=== PATIENT | male | born 1950 ===

== ENCOUNTER 2020-10-29 13:19 | Inpatient (IN) | payer MEDICARE, MEDICAID ==
[2020-10-29] MEDS ORDERED: NORVASC5 MG PO (13:49)
[2020-10-29] MEDS ORDERED: SINEMET 25-1001 EAC1 PO (13:51)
[2020-10-29] MEDS ORDERED: HALDOL DECAN50 MG/ML IM ×2 (13:54→14:16)
[2020-10-29] MEDS ORDERED: LASIX40 MG PO (13:55)
[2020-10-29] MEDS ORDERED: AMITIZA8 MCG PO (13:56)
[2020-10-29] MEDS ORDERED: PAXIL10 MG PO (13:57)
[2020-10-29] MEDS ORDERED: FLOMAX0.4 MG PO (13:58)
[2020-10-29] MEDS ORDERED: ACETAMINOPHEN500 M1 PO (14:02)
[2020-10-29 14:38] VITALS: BP 140/82
--- NOTE | 2020-10-29 16:13 | NUR ---
patient admitted to the services of Dr. Siddiqui for Agressive behaviors from [facility] in [place]. Pt arrived in own w/c per facility van with 2 staff members from facility. Code Status: DNR. Pt is alert and oriented to person, place and time. assist 1x with transfer. pt is calm and cooperative with staff. facility reported to staff he was aggressive with sexual advances toward staff such as grabbing females body parts. no behaviors noted at this time.
[2020-10-29 16:14] LABS: BASOPHILS 0.6 % (0-2); EOSINOPHILS 1.7 % (0-7); HEMATOCRIT 41.4 % (42.0-54.0); HEMOGLOBIN 13.5 g/dL (13.5-17.5); IMMATURE GRANULOCYTES 0.2 % (0-5); LYMPHOCYTE ABS# 1.23 10x3/uL (1.32-3.57); MCH 28.7 pg (26.0-34.0); MCHC 32.6 g/dL (31.0-37.0); MCV 88.1 fL (80.0-100.0); MEAN PLATELET VOLUME 10.5 fL (7.4-10.4); NEUTROPHIL ABS# 6.88 10x3/uL (1.78-5.38); NEUTROPHILS 78.5 % (40-80); PLATELET COUNT 180 10x3/uL (130-400); RDW 13.2 % (11.5-14.5); WBC 8.8 10x3/uL (4.8-10.8)
[2020-10-29 17:00] LABS: ALBUMIN 3.6 g/dL (3.4-5.0); BILIRUBIN - TOTAL 0.31 mg/dL (0.2-1.3); CALCIUM 8.5 mg/dL (8.5-10.1); CARBON DIOXIDE 29.7 mmol/L (21.0-32.0); CHOL - HDL RATIO 3.6 ratio (2.3-4.9); CREATININE - SERUM 1.5 mg/dL (0.6-1.3); LDL-HDL RATIO 2.1 ratio (1.5-3.5); POTASSIUM - SERUM 3.7 mmol/L (3.5-5.1); PROTEIN - SERUM 6.9 g/dL (6.4-8.2); THYROID STIMULATING HORMONE 2.74 uIU/mL (0.36-3.74)
[2020-10-29 18:01] VITALS: BP 140/82
[2020-10-29 20:00] VITALS: BP 118/72
[2020-10-29 22:01] LABS: BILIRUBIN NEGATIVE (NEGATIVE); KETONE NEGATIVE (NEGATIVE); NITRITE NEGATIVE (NEGATIVE); UROBILINOGEN NORMAL mg/dL (< 2)
--- NOTE | 2020-10-29 22:06 | NUR ---
RECEIVED PATIENT SLEEPING IN HIS ROOM HE WAS EASILY AROUSED TO TAKE HIS SINEMET, HE TOOK HIS MED WITHOUT DIFFICULY, NO SEXUAL INAPPROPRIATENESS AT THIS TIME. WILL FOLLOW POC
[2020-10-30 08:54] VITALS: BP 106/76
--- NOTE | 2020-10-30 13:37 | PSY ---
PATIENT NAME:PAO VERDE MEDICAL RECORD: [id number] : 52 LOCATION:[facility] ADMISSION DATE: 10/29/20 ACCOUNT: [id number] PSYCHIATRIC EVALUATION DATE OF EVALUATION: 10/29/20 IDENTIFYING DATA: The patient is 70 years old and he is admitted to the hospital on a voluntary basis. CHIEF COMPLAINT: Sexually inappropriate behavior. HISTORY OF PRESENT ILLNESS: The patient comes to us from a half-way in [place]. They report that he has advanced Parkinson's disease and that he has been sexually inappropriate. The specifics of this go beyond just some verbal or even vulgar commentary and have extended to him masturbating in public and groping at women who come too close to him. He seems genuinely surprised and offended when he is asked about these behaviors and he denies them. It is also clear that he has significant cognitive impairment. PAST MEDICAL HISTORY: Significant for benign prostatic hypertrophy, hypertension, and Parkinson's disease. PAST PSYCHIATRIC HISTORY: Unknown. The patient comes to us on a long-acting Haldol decanoate injection, which I have discontinued, but the fact that this was used indicates that there have been some problems with his behavior and/or reality testing and additional information needs to be sought. FAMILY HISTORY: Unknown. ALLERGIES: No known drug allergies. CURRENT MEDICATIONS: Include Lasix, Norvasc, Flomax, Sinemet, Amitiza, and Haldol decanoate which I have discontinued. SOCIAL HISTORY: The patient tells me that he is currently unmarried, but has been in the past. He tells me that he does not have any children and that he has no history of drug or alcohol abuse and that he worked for [employer] in [place] through much of his adult life. He denies legal entanglements. MENTAL STATUS EXAMINATION: The patient is awake, alert and oriented to person only. His mood is flat. His affect is constricted. Thought processes are circumstantial. Memory, concentration and abstraction abilities are severely impaired and he denies that he would seek to harm himself or others as well as psychotic symptoms. ASSESSMENT: AXIS I: Parkinson's related dementia. AXIS II: Deferred. AXIS III: Parkinson's disease, benign prostatic hypertrophy, hypertension. AXIS IV: Moderate. AXIS V: Global assessment of functioning is 30. PLAN: At this time, the patient is admitted to the hospital for a comprehensive medical, psychological, and social evaluation. He will be treated with both mood stabilizing and memory enhancing medications. His long-term prognosis is guarded. TRANSINT:[id number] Voice Confirmation ID: [id number] DOCUMENT ID: [id number] BECKY ACKERMAN MD at 1337 CC: [id number] DICTATION DATE: 10/29/20 1635 RADIO OFFICER: 10/29/20 1800 ADM IN [place] [id number] [place] [address]
[2020-10-30 13:40] VITALS: Wt 77.4 kg
--- NOTE | 2020-10-30 15:56 | NUR ---
ALERT, CALM, QUIET, SEXUALLY INAPPROPRIATE [facility] STAFF REQUESTING SEXUAL FAVORS FROM FEMALE STAFF. REDIRECTIBLE. MEDS ADMIN PER ORDERS WITH COMPLETE MED COMPLIANCE NOTED. NO ADVERSE REACTION TO MEDS. CONT. PLAN OF CARE OUTLINED.
[2020-10-30 20:00] VITALS: BP 135/80
--- NOTE | 2020-10-30 21:45 | NUR ---
RECEIVED PATIENT IN HIS ROOM, HE IS PLEASANT, CALM, TAKES HIS NIGHT MED. HAVE NOT SEEN ANY SEXUAL INAPRROPRIATENESS HOWEVER WAS TOLD IN REPORT THAT HE HAS BEEN INAPPROPRIATE ON DAYSHIFT. HE IS DEPENDENT UPON STAFF FOR ALL NEEDS. WILL FOLLOW POC
[2020-10-31 09:55] VITALS: BP 125/79
--- NOTE | 2020-10-31 15:30 | NUR ---
WALKED WITH A WALKER 86 FT A BIT UNSTEADY USED GT BELT
--- NOTE | 2020-10-31 17:33 | NUR ---
Rec'd patient up this am in a W/C. He is A/O times 2 to person and situation. He is med compliant and took his meds whole. He sat in the dining room today and watched TV. He attended some group/activities and participated some. He has been calm and coooperative. No aggressive or inappropriate sexual behaviors have been observed today. He is doing well.
[2020-10-31 20:00] VITALS: BP 118/89
--- NOTE | 2020-10-31 21:02 | NUR ---
PT IS ALERT AND ORIENTED TO SELF, PLACE AND SITUATION. HE IS RECEIVED IN HIS BED. BED ALARM ON AND WORKING. EDUCATED PT ON NEED FOR LEAVING THE BED ALARM ON. NO SEXUALLY INAPPROPRIATE BEHAVIOR NOTED. CALM AND COOPERATIVE WITH STAFF. EASY TO REDIRECT. NEEDS SOME FREQUENT REDIRECTION AT TIMES. COMPLIANT WITH ALL MEDICATIONS.
--- NOTE | 2020-11-01 02:59 | NUR ---
HEARD PT YELL OUT IN HIS ROOM. THIS NURSE GOES INTO HIS ROOM PT LAYING IN BED WITH HAND ON HIS GENITALS. PT STATES "PULL YOUR DRAWERS OFF." INFORMED HIM THAT HIS BEHAVIOR IS INAPPROPRIATE AND HE WAS IN A HOSPITAL. DIFFICULT TO REDIRECT AT THIS TIME.
--- NOTE | 2020-11-01 03:53 | NUR ---
PT OBSERVED BY STAFF MASTURBATING. REDIRECTED.
[2020-11-01 08:07] VITALS: BP 185/83
--- NOTE | 2020-11-01 08:26 | NUR ---
CONTINUES TO BE SEXUALLY INAPPROPRIATE WITH FEMALE STAFF. STATED TO MHT TO REMOVE HER CLOTHING.
--- NOTE | 2020-11-01 10:16 | NUR ---
Patient has been displaying sexual advances this am. He reached for one nurses private area and then said "pussy". He has had his penis out of his brief and his pants and will hold onto it, rub it, and use napkins in a motion as he is cleaning himself. Patient is reminded and informed with each episode of inappropriate behavior. He is redirected often.
--- NOTE | 2020-11-01 14:40 | NUR ---
ALERT, CALM, CONFUSED, VISITING WITH OTHER PATIENTS AT THIS TIME. BATH RECEIVED THIS MORNING PER MHT WITH NO INAPPROPRIATE BEHAVIOR NOTED. PATIENT COOPERATIVE. MEDS ADMIN PER ORDERS WITH COMPLETE MED COMPLIANCE NOTED. CONTINUE CURRENT PLAN OF CARE, MONITORING FOR FURTHER EPISODES OF SEXUAL BEHAVIORS.
[2020-11-01 20:00] VITALS: BP 114/82
--- NOTE | 2020-11-01 20:58 | NUR ---
PT IS ALERT AND ORIENTED TO SELF ONLY. POOR INSIGHT INTO HIS SITUATION. RECEIVED IN THE HALLWAY OUTSIDE THE NURSES STATION IN A WHEELCHAIR. PT HAS A FLAT AFFECT. COOPERATIVE WITH STAFF. COMPLIANT WITH ALL MEDICATIONS. EASY TO REDIRECT. EDUCATION ON BED ALARM PROVIDED AND PT VERBALIZED UNDERSTANDING.
--- NOTE | 2020-11-02 14:00 | NUR ---
As this nurse passed by patients room, I noticed patient was standing at the bedside with a urinal and was massaging his penis down into the urinal opening. This nurse closed his door for privacy. PT assessed and treated patient today.
--- NOTE | 2020-11-02 14:17 | NUR ---
GT BELT, PATIENT STOOD AND WALKED IN ALARCON 100 FEET WITH MIN-MOD ASST. PATIENT IS UNSTEADY AND DOES BETTER WITH WALKER.
[2020-11-02 21:44] VITALS: BP 119/83
--- NOTE | 2020-11-03 00:25 | NUR ---
PT IS ALERT AND ORIENTED TO SELF ONLY. POOR INSIGHT INTO HIS SITUATION. RECEIVED IN BED WITH EYES OPEN. CALM AND COOPERATIVE WITH STAFF. NO SEXUALLY INAPPROPRIATE BEHAVIORS NOTED. COMPLIANT WITH ALL MEDICATIONS. EASY TO REDIRECT. MONITOR FOR SAFETY.
[2020-11-03 08:00] VITALS: BP 140/71
--- NOTE | 2020-11-03 09:55 | NUR ---
Nutrition Follow-up Diet: Cardiac Mech Soft with [place] thick consistency PO intake: ~89% average x last 9 meals Last BM: 11/02/20 Wt: 170# (11/02/20); Admit wt: 171# (10/29/20) Meds noted: lasix Labs reviewed Recommend continue continue current diet. RD will follow-up for re-assessment on 11/05/20.
--- NOTE | 2020-11-03 10:59 | NUR ---
GT BELT, PATIENT STOOD WITH MIN ASST AND WALKED 110 FEET WITH MIN ASST. PATIENT TAKES SHORT STEPS.
--- NOTE | 2020-11-03 14:04 | PN ---
PATIENT:PAO VERDE MEDICAL RECORD: [id number] LOCATION:[facility] ADMISSION DATE: 10/29/20 PROGRESS NOTE DATE OF SERVICE: 10/30/2020 SUBJECTIVE: The patient's case was discussed with staff. He has no new complaint. OBJECTIVE: The patient has been sexually inappropriate with a staff in a way that is wildly out of hand and vulgar. There is some information that he has a history of schizophrenia, which truly does not fit with the diagnosis of Parkinson's disease. He also comes to us on a long-acting Haldol injection, which also does not fit with the diagnosis of Parkinson's disease. ASSESSMENT: 1. Parkinson's related dementia. 2. Reported history of schizophrenia. PLAN: At this time, the patient's behaviors are problematic, but manageable if he is adequately supervised and I have discussed with the staff the importance of not allowing him any access to female patients. I am going to just observe him and try to collect more information. He is not showing the tremor associated with a Parkinson's diagnosis, but if I discontinued the Sinemet does he begin shaking because he has Haldol decanoate in his system or because he has an underlying Parkinson's disease. The case is complex. The management is also going to be complex and I am also considering a Depo-Provera injection for his sexually inappropriate behavior, but want to wait to see how things progress. TRANSINT:[id number] Voice Confirmation ID: [id number] DOCUMENT ID: [id number] BECKY ACKERMAN MD at 1404 CC: [id number] DICTATION DATE: 10/30/201808 FORECLOSURE FIELD INSPECTOR: 10/30/20 1829 ADM IN [facility] [address] [id number]
--- NOTE | 2020-11-03 17:30 | NUR ---
RECEIVED IN PATIENT ROOM. CALM AND COOPERATIVE WITH CARE AND ASSESSMENT. NO SEXUALLY INAPPROPRIATE BEHAVIOR TODAY. REDIRECT AND REORIENT NEEDED. EATING DINNER AT THIS TIME. CONTINUE PLAN OF CARE.
[2020-11-03 22:16] VITALS: BP 130/80
--- NOTE | 2020-11-04 01:52 | NUR ---
B)RECEIVED PATIENT SITTING IN THE WHEELCHAIR IN HIS ROOM. ORIENTED X4. RELATED THE REASON FOR HOSPITALIZATION "KIND OF OFF IN MY MIND. NURSE WAS GOING TO GIVE ME SOME MEDICINE AND I KIND OF TOUCHED HER SOMEWHERE UP THERE" (POINTING UP TOWARD THE BREAST AREA. CALM AND COOPERATIVE. I)ADMINISTER MEDS AND MONITOR COMPLIANCE. MONITOR FOR SEXUALLY INAPPROPRIATENESS AND REDIRECT NEEDED. R)MED COMPLIANT. NO INAPPROPRIATE BEHAVIOR OBSERVED. COOPERATIVE. P)CONTINUE POC AND PROVIDE SAFE ENVIRONMENT.
--- NOTE | 2020-11-04 11:00 | NUR ---
Received patient sitting in wheelchair in the hallway by nurses station. Calm and cooperative with assessment. Prescribed medications provided as ordered. Med compliant at this time. Redirect and reorient as needed. No behaviors noted at this time. Fall precautions in place for safety. Will continue plan of care.
--- NOTE | 2020-11-04 16:48 | PN ---
PATIENT:PAO VERDE MEDICAL RECORD: [id number] LOCATION:[facility] ADMISSION DATE: 10/29/20 PROGRESS NOTE DATE OF SERVICE: 11/03/2020 SUBJECTIVE: The patient's case was discussed with staff. He has no new complaint. OBJECTIVE: The patient denies that he would seek to harm himself or others. He is disorganized with impairment of his short-term memory, but for the most part, he is oriented. ASSESSMENT: Schizophrenia. PLAN: The patient has had new and important information come to light. His brother says that he was diagnosed with Parkinson's disease a few years ago. The patient shown no evidence of this. Interestingly, he has a long history of schizophrenia and treatment with antipsychotic medications and I strongly suspect that inadequate history was provided and that the patient was inaccurately and incorrectly diagnosed with a neurologic disease when he was having neurologic symptoms that are associated with the treatment of a psychiatric disease. At this point, I am going to discontinue his Sinemet and in short order. I will also resume antipsychotic treatment. He has not been sexually inappropriate today and that is encouraging. TRANSINT:[id number] Voice Confirmation ID: [id number] DOCUMENT ID: [id number] BECKY ACKERMAN MD at 1648 CC: [id number] DICTATION DATE: 11/03/201752 HOSPICE SOCIAL WORKER: 11/04/20 0057 ADM IN [facility] [address] [place] [address]
[2020-11-04 20:00] VITALS: BP 119/74
--- NOTE | 2020-11-04 20:31 | NUR ---
RECEIVED IN BEDROOM. RESTING IN BED WITH EYES CLOSED. CALM AND COOPERATIVE WITH CARE AND ASSESSMENT. NO SIGNS OF AGGRESSION. REDIRECT AND REORIENT NEEDED. CONTINUES TO REST QUIETLY IN BED. CONTINUE PLAN OF CARE.
--- NOTE | 2020-11-04 21:56 | NUR ---
SEXUALLY INAPPROPRIATE WITH MHT. ASKING HER TO HAVE SEX WITH HIM. REDIRECT NEEDED.
[2020-11-05 08:16] VITALS: BP 128/84
--- NOTE | 2020-11-05 10:37 | NUR ---
Received patient in bed with eyes closed. Responds to verbal stimuli. Calm and cooperative with assessment at this time. Prescribed medications provided as ordered. Med compliant. Sexual inappropriate behavior reported from organ fixer. No inappropriate behavior noted at this time. Redirect and reorient as needed. Fall precautions in place for safety. Will continue plan of care.
--- NOTE | 2020-11-05 13:33 | NUR ---
Nutrition Re-Assessment Diet: Cardiac MECH soft with nectar thick PO intake: 100% x last 9 meals Last BM: 11/04/20 Wt: 170# (11/02/20); Admit Wt: 171# (10/29/20) Meds noted: clarence sullivan Labs reviewed Estimated nutrition needs remain unchanged from initial nutrition assessment at this time. Nutrition diagnosis: Swallowing difficulty r/t PMHx AEB needs for nectar thickened liquids. Patient is progressing towards meeting nutrition goals at this time. Recommendations/Interventions: -Recommend continue PO diet per EDUCATIONAL AID recommendations. Will continue to honor food preferences within diet restrictions. -RD will continue to monitor PO Intake and wt trend. -RD will follow-up within 7 days.
--- NOTE | 2020-11-05 13:58 | NUR ---
GT BELT, PATIENT MIN ASST TO STAND AND MIN ASST TO WALK 140 FEET IN ALARCON. PATIENT SHUFFLES HIS FEET AND HAS TO BE REMINDED TO TAKE BIGGER STEPS.
--- NOTE | 2020-11-05 16:20 | PN ---
PATIENT:PAO VERDE MEDICAL RECORD: [id number] LOCATION:[facility] ADMISSION DATE: 10/29/20 PROGRESS NOTE DATE OF SERVICE: 11/04/2020 SUBJECTIVE: The patient's case was discussed with staff. He has no new complaint. OBJECTIVE: The patient has not been sexually inappropriate today. He is tolerating his medicines well and even the discontinuation of his Sinemet has not resulted in any evidence of a movement disorder. I am convinced that the Parkinson's diagnosis was erroneous and we will treat him for sexually inappropriate behavior, which I think is related to his schizophrenia. TRANSINT:[id number] Voice Confirmation ID: [id number] DOCUMENT ID: [id number] BECKY ACKERMAN MD at 1620 CC: [id number] DICTATION DATE: 11/04/20 170 MANAGER VALUATION: 11/05/20 0024 ADM IN [facility] [address] [place] [address]
[2020-11-05 20:00] VITALS: BP 120/80
--- NOTE | 2020-11-05 21:26 | NUR ---
PT IS ALERT AND ORIENTED TO SELF, PLACE AND SITUATION. RECEIVED IN HIS ROOM IN BED RESTING CALMLY. COOPERATIVE WITH STAFF. COMPLIANT WITH ALL MEDICATIONS. REFUSES HS SNACK. REDIRECT AND REORIENT NEEDED. NO SEXUALLY INAPPROPRIATE BEHAVIOR NOTED.
[2020-11-06 08:51] VITALS: BP 128/85
--- NOTE | 2020-11-06 13:09 | NUR ---
GT BELT, PATIENT MIN ASST TO STAND AND TO WALK IN ALARCON 140 FEET. PATIENT TAKES SHORT STEPS AND HAS TO BE TOLD TO TAKE BIGGER STEPS.
--- NOTE | 2020-11-06 15:11 | NUR ---
Patient rec'd this am up in w/c. He is med compliant and takes meds whole. He is on a 1500 free water intake. He is med compliant and takes meds whole. He attended group therapy and activities and participated some. He likes to self isolate from others. He has displayed no aggressive behavior to patients or to staff. He only had one episode where he stuck his rolled up tongue in and out of his mouth several times to a nurse.
--- NOTE | 2020-11-06 16:13 | PN ---
PATIENT:PAO VERDE MEDICAL RECORD: [id number] LOCATION:[facility] ADMISSION DATE: 10/29/20 PROGRESS NOTE DATE OF SERVICE: 11/05/2020 SUBJECTIVE: The patient's case was discussed with staff. He has no new complaint. OBJECTIVE: The patient is in good behavioral control, but did have some sexually inappropriate comments to make toward a female staff member last night. ASSESSMENT: Schizophrenia. PLAN: Current medicines have been reviewed and will be maintained. I am going to start the patient on Haldol on an oral basis. TRANSINT:[id number] Voice Confirmation ID: [id number] DOCUMENT ID: [id number] BECKY ACKERMAN MD at 1613 CC: [id number] DICTATION DATE: 11/05/20 1650 ENGLISH FACULTY MEMBER: 11/05/20 2348 ADM IN [place] [id number] [place] [id number]
[2020-11-06 20:00] VITALS: BP 144/88
--- NOTE | 2020-11-07 01:50 | NUR ---
B) Patient is alert and oriented to person, place and time, self isolates in his room, no sexually inappropiate statements of actions this shift, I) administered scheduled medications as ordered, monitored for safety and for behaviors, R) Medication compliant, sleeping quietly in his room, P) Continue plan of care.
--- NOTE | 2020-11-07 10:30 | NUR ---
GT BELT, PATIENT MIN ASST TO STAND AND MIN ASST TO WALK 140 FEET IN ALARCON WITH WALKER.
--- NOTE | 2020-11-07 11:57 | PN ---
PATIENT:PAO VERDE MEDICAL RECORD: [id number] LOCATION:[facility] ADMISSION DATE: 10/29/20 PROGRESS NOTE DATE OF SERVICE: 11/06/2020 SUBJECTIVE: The patient's case was discussed with staff. He has no new complaint. OBJECTIVE: The patient has not been sexually inappropriate today. He has been in good behavioral control with limited insight about his situation. He is showing no evidence of Parkinson disease. ASSESSMENT: Schizophrenia. PLAN: The patient will be treated with Haldol on a scheduled basis, and if this level of improvement continues, I plan to discharge him back to the assisted soon. TRANSINT:[id number] Voice Confirmation ID: [id number] DOCUMENT ID: [id number] BECKY ACKERMAN MD at 1157 CC: [id number] DICTATION DATE: 11/06/20 1718 TUMBLING AND ROLLING SUPERVISOR: 11/06/20 1844 ADM IN [facility] [address] [place] [address]
[2020-11-07 15:05] VITALS: BP 116/72
--- NOTE | 2020-11-07 15:27 | NUR ---
Patient rec'd this am sitting on the side of the bed. He was witnessed by a staff nurse as he was sitting on the bed that he had his hands in his pants and hands on wrapped around his penis and was moving the penis back and forth. This nurse closed the door for his privacy. He has not displayed an other sexual behaviors. He is med compliant and takes meds whole with thickened liquids. He sat with the other patients in activities/ group therapy
[2020-11-07 20:00] VITALS: BP 94/65
--- NOTE | 2020-11-07 20:25 | NUR ---
RECEIVED PATIENT LYING IN HIS BED, NO RESP. DISTRESS, HE IS PLEASANT, NO SEXUAL INAPPROIATENESS NOTED THIS EVENING. COMPLIANT THIS EVENING. HE ADMITS TO TOUCHING A STAFF MEMBER AT THE FACILITY WHERE HE WAS. HE IS ABLE TO MAKE HIS NEEDS KNOWN. WILL FOLLOW POC
[2020-11-08 09:00] VITALS: BP 133/82
--- NOTE | 2020-11-08 14:00 | NUR ---
PT SITTING AT TABLE AT THIS TIME. PT IS DISORIENTED TO SITUATION. REDIRECT AND REORIENT NEEDED. NO SEXUAL BEHAVIOR NOTED. PT IS COMPLIANT WITH MEDS, VITALS AND ASSESSMENTS. PT CONTS TO WORK WITH PT FOR STRENGTH. COOPERATIVE WITH PT. TAKES ALL MEDS. MAKES NEEDS KNOWN. CHAIR ALARM IN PLACE AND ACTIVE. WILL CONT PLAN OF CARE.
--- NOTE | 2020-11-08 22:15 | NUR ---
B)RECEIVED PATIENT SITTING IN HIS ROOM IN THE WHEELCHAIR. ALERT AND ORIENTED X4. WITHDRAWN WITH PEERS. SOCIALIZES WITH STAFF. PT MADE INAPPROPRIATE GESTURE TOWARD NURSE BY TELLING HER TO COME HERE AND APPEARED TO BE POINTING AT HER JACKET HOWEVER THE NURSE GOT CLOSER HE ACTUALLY WAS POINTING HER PRIVATE AREA. EXPLAINED THIS IS NOT EXCEPTABLE AND INAPPROPRIATE BEHAVIOR. I)ADMINISTER MEDS AND MONITOR COMPLIANCE. REIDIRECT FOR INAPPROPRIATE BEHAVIORS. R)MED COMPLIANT. PT CAN VERBALIZE THE REASON FOR HOSPITALIZATION TOUCHING A NURSE AROUND THE BREAST AREA HOWEVER CONTINUES TO MAKE INAPPROPRIATE REMARKS OF GESTURES OF SEXUAL NATURE. P)CONTINUE POC AND PROVIDE SAFE ENVIRONMENT.
--- NOTE | 2020-11-09 10:47 | NUR ---
REC'D PT IN BED WITH EYES OPEN. AWAKE AND ALERT X3. CALM AND COOPERATIVE WITH ASSESSMENT. PRESCRIBED MEDS PROVIDED ORDERED. MED COMPLIANT. PT CAN BECOME SEXUALLY INAPPROPRIATE WITH STAFF AT TIMES. REDIRECT AND REORIENT NEEDED. FALL PORECAUTIONS IN PLACE FRO SAFETY. WILL CPOC.
[2020-11-09 12:10] VITALS: BP 135/70
--- NOTE | 2020-11-09 20:16 | NUR ---
RECEIVED IN BEDROOM. RESTING IN BED WITH EYES OPEN. CALM AND COOPERATIVE WITH CARE AND ASSESSMENT. NO SIGNS OF AGGRESSION. NO SEXUALLY INAPPROPRIATE BEHAVIORS. REDIRECT AND REORIENT NEEDED. CONTINUES TO REST QUIETLY IN BED WITH EYES CLOSED. CONTINUE PLAN OF CARE.
[2020-11-09 21:11] VITALS: BP 124/82
--- NOTE | 2020-11-10 10:32 | NUR ---
GT BELT, PATIENT MIN ASST TO STAND AND MIN-MOD ASST TO WALK IN ALARCON FOR 70 FEET. PATIENT STARTED TO GET FATIGUED AND WOULD SHUFFLE HIS FEET WHEN WALKING.
[2020-11-10 10:34] VITALS: BP 133/82
--- NOTE | 2020-11-10 16:41 | NUR ---
CALM, COOPERATIVE, PLEASANT, QUIET. YELLS ALOUD ONLY WHEN HE NEEDS TO GO TO BATHROOM. MEDS ADMIN PER ORDERS WITH COMPLETE MED COMPLIANCE NOTED. NO FURTHER BEHAVIORS. NO ADVERSE REACTION TO MEDS. CONT PLAN OF CARE OUTLINED.
--- NOTE | 2020-11-10 20:32 | NUR ---
RECEIVED IN HALLWAY OUSIDE OF HIS ROOM. CALM AND COOPERATIVE WITH CARE AND ASSESSMENT. NO SIGNS OF AGGRESSION OR SEXUALLY INAPPROPRIATE BEHAVIOR. REDIRECT AND REORIENT NEEDED. RESTING QUIETLY IN BED AT THIS TIME. CONTINUE PLAN OF CARE.
[2020-11-10 20:49] VITALS: BP 115/74
[2020-11-11 08:00] VITALS: BP 146/81
--- NOTE | 2020-11-11 09:00 | NUR ---
REC'D PT IN HALLWAY IN W/C. AWAKE AND ALERT X 2. CALM AND COOPERATIVE WITH ASSESSMENT. PRESCRIBED MEDS PROVIDED ORDERED. MED COMPLIANT. PT IS WITHDRAWN AT THIS TIME. PT IS UNABLE TO MAKE NEEDS KNOWN TO STAFF. REDIRECT AND REORIENT NEEDED. FALL PRECAUTIONS IN PLACE. WILL CPOC.
--- NOTE | 2020-11-11 14:24 | NUR ---
GT BELT, PATIENT MIN-MOD ASST TO STAND FROM WHEELCHAIR. PATIENT WALKED WITH MOD ASST FOR 70 FEET. PATIENT FATIGUES AND TAKES SHORT AND SHUFFLED STEPS.
--- NOTE | 2020-11-11 15:18 | NUR ---
Nutrition Re-Assessment Diet: Cardiac Mech Soft with [place] Thick PO intake: 100% x last 6 meals Last BM: 11/10/20 Wt: 171# (10/09/20); Admit wt: 171# (10/29/20) Meds noted: lasix No new chem labs Estimated nutrition needs remain unchanged from intitial nutrition assessment at this time. Patient is progressing towards meeting nutrition goals at this time. Recommendations/Interventions: -Recommend continue current PO diet or per LAUNDRY SUPERINTENDENT recommendations. -Will continue to honor food preferences within diet restrictions. -RD will follow-up within 7 days.
--- NOTE | 2020-11-11 15:41 | PN ---
PATIENT:PAO VERDE MEDICAL RECORD: [id number] LOCATION:[facility] ADMISSION DATE: 10/29/20 PROGRESS NOTE DATE OF SERVICE: 11/10/2020 SUBJECTIVE: The patient's case was discussed with staff. He has no new complaint. OBJECTIVE: The patient has had no sexually inappropriate or aggressive behavior. He is very impaired cognitively, but is pleasant, cooperative, and responds well to reasonable instructions and redirection. ASSESSMENT: Schizophrenia. PLAN: The patient is tolerating his current medicines. I am going to check Depakote level. He will be monitored for clinical changes. TRANSINT:[id number] Voice Confirmation ID: [id number] DOCUMENT ID: [id number] BECKY ACKERMAN MD at 1541 CC: [id number] DICTATION DATE: 11/10/20 1639 PAD MACHINE OPERATOR: 11/11/20 0023 ADM IN [facility] [address] [id number]
--- NOTE | 2020-11-11 20:24 | NUR ---
RECEIVED IN DAYROOM. SITTING IN A WHEELCHAIR WITH PEERS AT HIS SIDE. CALM AND COOPERATIVE WITH CARE AND ASSESSMENT. NO SIGNS OF AGGRESSSION. REDIRECT AND REORIENT NEEDED. NO SIGNS OF AGGRESSION OR SEXUALLY INAPPROPRIATE BEHAVIORS. REDIRECT AND REORIENT NEEDED. CONTINUE PLAN OF CARE.
[2020-11-11 20:29] VITALS: BP 92/61
[2020-11-12 10:34] VITALS: BP 139/76
--- NOTE | 2020-11-12 13:53 | NUR ---
GT BELT, PATIENT MIN-MOD ASST TO STAND AND MIN-MOD ASST TO WALK 80 FEET WITH WALKER. PATIENT TAKES SHORT STEPS AND SHUFFLES FEET.
--- NOTE | 2020-11-12 14:33 | NUR ---
Rec'd patient up in w/c this am. He is A/O times 2 to person and situation. He is med compliant and took his meds whole. He has participated some in group activities/ therapy today. He prefers to stay by himself. He becomes easliy aggitated when other confused patients starts to get real near him and his personal stuff. He has not verbalized or demonstrated any sexual behavior, He is directable or redirectable.
--- NOTE | 2020-11-12 14:53 | PN ---
PATIENT:PAO VERDE MEDICAL RECORD: [id number] LOCATION[facility] ADMISSION DATE: 10/29/20 PROGRESS NOTE DATE OF SERVICE: 11/11/2020 SUBJECTIVE: The patient's case was discussed with staff. He has no new complaint. OBJECTIVE: The patient denies intent to harm himself or others. He is tolerating his medicines well and has not been sexually inappropriate. He can be returned to the residential as soon as the office of long-term care approves the transfer. TRANSINT:[id number] Voice Confirmation ID: [id number] DOCUMENT ID: [id number] BECKY ACKERMAN MD at 1453 CC: [id number] DICTATION DATE: 11/11/201736 INFORMATION RESOURCES MANAGER: 11/12/20 0215 ADM IN [facility] [address] [place] [address]
[2020-11-12 20:00] VITALS: BP 145/91
--- NOTE | 2020-11-12 23:27 | NUR ---
B)RECEIVED PATIENT SITTING IN HIS WHEELCHAIR IN THE HALLWAY. WITHDRAWN AROUND PEERS HOWEVER WILL INTERACT WITH STAFF WHEN APPROACHED. ORIENTED TO PERSON, PLACE AND MONTH. REPORTED THE REASON FOR HOSPITALIATION IS "GUESS I HAD A BREAKDOWN AND GOT SICK OVER A NURSE. I GUESS HER TITTIES." I)ADMINISTER MEDS AND MONITOR COMPLIANCE. MONITOR FOR INAPPROPRIATE BEHAVIORS AND REDIRECT NEEDED. R)MED COMPLIANT. COOPERATIVE. NO INAPPROPRIATE BEHAVIORS THIS SHIFT. P)CONTINUE POC AND PROVIDE SAFE ENVIRONMENT.
[2020-11-13 07:52] VITALS: BP 130/82
--- NOTE | 2020-11-13 10:35 | NUR ---
GT BELT, PATIENT MOD ASST TO STAND FROM WHEELCHAIR AND MIN-MOD ASST TO WALK 120 FEET. PATIENT TAKES SHORT STEPS AND SHUFFLES HIS FEET.
--- NOTE | 2020-11-13 12:08 | NUR ---
PT SITTING IN W/C AT THIS TIME. PT IS CALM AND COOPERATIVE. PT IS AAO 2X. SOME CONFUSION NOTED. PT REQURIES SOME ASSISTANCE WITH ADLS. COMPLIANT WITH MEDS, VITALS AND ASSESSMENTS. NO BEHAVIORS NOTED. CAN MAKE NEEDS KNOWN. PT CONTS TO WORK WITH PT. PT CAN WITHDRAWN AT TIMES. WILL ENGAGE WHEN SPOKEN. TAKES MEDS WHOLE. CHAIR ALARM IN PLACE AND ACTIVE. WILL CONT PLAN OF CARE.
--- NOTE | 2020-11-13 16:11 | PN ---
PATIENT:PAO VERDE MEDICAL RECORD: [id number] [facility]ATION[facility] ADMISSION DATE: 10/29/20 PROGRESS NOTE DATE OF SERVICE: 11/12/2020 SUBJECTIVE: The patient's case was discussed with staff. He has no new complaint. OBJECTIVE: The patient has not been aggressive or sexually inappropriate. He is only oriented to person. ASSESSMENT: Schizophrenia. PLAN: Current medicines have been reviewed. Long-term prognosis is guarded. TRANSINT:[id number] Voice Confirmation ID: [id number] DOCUMENT ID: [id number] BECKY ACKERMAN MD at 1611 CC: [id number] DICTATION DATE: 11/12/20 1615 ENVELOPE SEALER OPERATOR: 11/13/20 0004 ADM IN [place] [address] [place] [address]
[2020-11-13 20:00] VITALS: BP 143/93
--- NOTE | 2020-11-13 20:00 | NUR ---
B) Patient is alert6 and oriented to person, calm and cooperative this shift, I) Administered scheduled medications as ordered, assisted with needs, R) medication compliant, no behaviors noted this shift, P) Continue plan of care.
[2020-11-14 07:48] VITALS: BP 129/81
--- NOTE | 2020-11-14 13:24 | NUR ---
NUTRITION FOLLOW UP: COMMENTS: Patient eating well for both meals and snacks. No new labs since 10/29. DIET: AHA Mech Soft with [place] Thick Liquids PO INTAKE: 99% avg for last 9 meals; 87% avg for last 6 snacks WEIGHT: 171 lbs on 11/09 BM: x 1 on 11/12 SIG MEDS: Depakote, Lipitor, Vit d, Lasix SIG LABS: No new labs since 10/29 RECOMMENDATIONS: Continue current diet per [facility] [address] RD to follow up within 7 days
--- NOTE | 2020-11-14 14:01 | PN ---
PATIENT:PAO VERDE MEDICAL RECORD: [id number] [facility] ADMISSION DATE: 10/29/20 PROGRESS NOTE DATE OF SERVICE: 11/13/2020 SUBJECTIVE: The patient's case was discussed with staff. He has no new complaint. OBJECTIVE: The patient is partially oriented. He is cooperative. He has had no sexually inappropriate behavior and no overt psychotic symptoms. ASSESSMENT: Schizophrenia. PLAN: The patient will be maintained on current medicines and I anticipate he can be transitioned back to the [facility] soon. TRANSINT:[id number] Voice Confirmation ID: [id number] DOCUMENT ID: [id number] BECKY ACKERMAN MD at 1401 CC: [id number] DICTATION DATE: 11/13/20 1619 TEACHER INSTRUMENTAL: 11/13/20 2328 ADM IN [place] [id number] [place] [address]
[2020-11-14 16:08] LABS: BASOPHILS 0.4 % (0-2); EOSINOPHILS 1.7 % (0-7); HEMATOCRIT 40.1 % (42.0-54.0); IMMATURE GRANULOCYTES 0.3 % (0-5); LYMPHOCYTE ABS# 1.26 10x3/uL (1.32-3.57); LYMPHOCYTES 13.7 % (15-50); MCH 29.3 pg (26.0-34.0); MCHC 32.4 g/dL (31.0-37.0); MCV 90.3 fL (80.0-100.0); MEAN PLATELET VOLUME 11.7 fL (7.4-10.4); MONOCYTES 8.8 % (2-11); NEUTROPHIL ABS# 6.92 10x3/uL (1.78-5.38); NEUTROPHILS 75.1 % (40-80); PLATELET COUNT 162 10x3/uL (130-400); RBC 4.44 10x6/uL (4.20-6.10); RDW 13.4 % (11.5-14.5); WBC 9.2 10x3/uL (4.8-10.8)
[2020-11-14 16:27] LABS: ANION GAP 8.2 mmol/L (8-16); CALCIUM 8.2 mg/dL (8.5-10.1); CARBON DIOXIDE 31.8 mmol/L (21.0-32.0); CREATININE - SERUM 1.7 mg/dL (0.6-1.3); VALPROIC ACID (DEPAKOTE) 83.5 ug/mL (50.0-100.0)
--- NOTE | 2020-11-14 17:15 | NUR ---
PT EATING AT THIS TIME. PT IS CONFUSED AND ALERT TO PERSON, PLACE AND SITUATION. COMPLIANT WITH MEDS, VITALS AND ASSESSMENT. CONTS TO BE WITHDRAWN. FRIENDLY WITH STAFF AND PEERS WHEN SPOKEN WITH. CAN MAKE NEEDS KNOWN. AMBULATES WITH ASSISTANCE. NO BEHAVIORS NOTED. BED AND CHAIR ALARM IN PLACE. WILL CONT PLAN OF CARE.
[2020-11-14 20:00] VITALS: BP 128/82
--- NOTE | 2020-11-14 21:01 | NUR ---
PT RECEIVED IN BED RESTING CALMLY WITH EYES CLOSED. ALERT AND ORIENTED TO SELF AND PLACE. COMPLIANT WITH ALL MEDICATIONS. NO SEXUALLY INAPPROPRIATE BEHAVIORS NOTED. ENCOURAGED TO AVOID GETTING OUT OF BED WITHOUT ASSIST. MONITOR FOR SAFETY.
[2020-11-15 09:42] VITALS: BP 136/80
--- NOTE | 2020-11-15 14:04 | NUR ---
GT BELT, PATIENT WALKED 80 FEET WITH MIN ASST WITH WALKER. PATIENT STILL SHUFFLES HIS FEET BUT DID TAKE SOME BETTER STEPS TODAY.
--- NOTE | 2020-11-15 16:54 | NUR ---
RECEIVED THIS AM SITTING UP IN WHEELCHAIR.IS ORIENTED TO SELF.IS COMPLIANT WITH STAFF AND MEDS.MEDS TAKEN CRUSHED AND IN CHOCOLATE ICE CREAM.IS ON [facility] SOFT DIET WITH HONEY THICK LIQUIDS.NO AGGRESSION OBSERVED THIS SHIFT.WILL CONTINUE WITH CURRENT PLAN OF CARE,MONITOR FOR SAFETY AND CHANGES.
[2020-11-15 22:17] VITALS: BP 123/80
--- NOTE | 2020-11-15 23:02 | NUR ---
PT IS ALERT AND ORIENTED TO SELF AND SITUATION. RECEIVED IN A WHEELCHAIR IN THE HALLWAY OUTSIDE THE NURSES STATION. CALM AND COOPERATIVE WITH STAFF. COMPLIANT WITH ALL MEDICATIONS. NO SEXUALLY INAPPROPRIATE BEHAVIOR NOTED. EASY TO REDIRECT. MONITOR FOR SAFETY.
[2020-11-16 08:00] VITALS: BP 136/88
--- NOTE | 2020-11-16 10:47 | PN ---
PATIENT:PAO VERDE MEDICAL RECORD: [id number] [facility]ATION[facility] ADMISSION DATE: 10/29/20 PROGRESS NOTE DATE OF SERVICE: 11/15/2020 SUBJECTIVE: The patient's case was discussed with staff. SUBJECTIVE: The patient is oriented to person only and has had no psychotic symptoms. He has no thoughts of harming himself or others and has not been sexually inappropriate. He slept well and ate well. ASSESSMENT: Schizophrenia. PLAN: The patient will be transitioned back to the shelter as soon as the office of long-term care gives approval. TRANSINT:[id number] Voice Confirmation ID: [id number] DOCUMENT ID: [id number] BECKY ACKERMAN MD at 1047 CC: [id number] DICTATION DATE: 11/15/201119 NAT INSTRUCTOR: 11/15/201950 ADM IN [facility] [address] [place] [id number]
--- NOTE | 2020-11-16 10:47 | PN ---
PATIENT:PAO VERDE MEDICAL RECORD: [id number] [facility]ATION[facility] ADMISSION DATE: 10/29/20 PROGRESS NOTE DATE OF SERVICE: 11/14/2020 SUBJECTIVE: The patient's case was discussed with staff. He has no new complaint. OBJECTIVE: The patient is in good behavioral control and has had no sexually inappropriate behavior. He is only partially oriented and does need 24-hour a day supervision. ASSESSMENT: Dementia. PLAN: The patient will be transitioned out of the hospital soon. His long-term prognosis is guarded. TRANSINT:[id number] Voice Confirmation ID: [id number] DOCUMENT ID: [id number] BECKY ACKERMAN MD at 1047 CC: [id number] DICTATION DATE: 11/14/20 1540 MATHEMATICAL STATISTICIAN: 11/14/20 2253 ADM IN [place] [id number] [place] [address]
--- NOTE | 2020-11-16 18:09 | NUR ---
ALERT, CALM, COOPERATIVE, PLEASANT. INCONTINENT OF URINE AT TIMES. MEDS ADMIN PER ORDERS WITH COMPLETE MED COMPLIANCE NOTED. NO ADVERSE REACTION TO MEDS. CONT. POC OUTLINED.
--- NOTE | 2020-11-16 20:04 | NUR ---
RECEIVED IN BEDROO. SITTING QUIETLY IN A WHEELCHAIR AT BEDSIDE. CALM AND COOPERATIVE WITH CARE AND ASSESSMENT. NO SIGNS OF SEXUALLY INAPPROPRIATE BEHAVIOR. NO SIGNS OF AGGRESSION. REDIRECT AND REORIENT NEEDED. CONTINUES TO SIT QUIETLY AT BEDISDE. CONTINUE PLAN OF CARE.
[2020-11-16 21:15] VITALS: BP 109/69
[2020-11-17 08:27] VITALS: BP 145/69
--- NOTE | 2020-11-17 10:54 | NUR ---
GT BELT, PATIENT MIN-MOD ASST TO STAND FROM WHEELCHAIR, MIN ASST TO WALK 100 FEET WITH WALKER. PATIENT TOOK A LITTLE BETTER STEPS TODAY BUT STILL WANTS TO SHUFFLE HIS FEET.
--- NOTE | 2020-11-17 13:29 | PN ---
PATIENT:PAO VERDE MEDICAL RECORD: [id number] [facility] ADMISSION DATE: 10/29/20 PROGRESS NOTE DATE OF SERVICE: 11/16/2020 SUBJECTIVE: The patient's case was discussed with staff. He has no new complaint. OBJECTIVE: The patient is in good behavioral control with limited insight about his situation. He has not been sexually inappropriate and is showing no psychotic symptoms. ASSESSMENT: Schizophrenia. PLAN: The patient will be transitioned back to the [facility] soon. TRANSINT:[id number] Voice Confirmation ID: [id number] DOCUMENT ID: [id number] BECKY ACKERMAN MD at 1329 CC: [id number] DICTATION DATE: 11/16/20 1110 MANAGER PRINT: 11/16/20 1425 ADM IN [place] [address] [place] [address]
--- NOTE | 2020-11-17 17:30 | NUR ---
RECEIVED IN PATIENT ROOM. RESTING IN BED WITH EYES OPEN. CALM AND COOPERATIVE WITH CARE AND ASSESSMENT. NO SEXUALLY INAPPROPRIATE BEHAVIOR. NO AGGRESSION. REDIRECT AND REORIENT NEEDED. EATING DINNER AT THIS TIME. CONTINUE PLAN OF CARE.
[2020-11-17 20:00] VITALS: BP 110/70
--- NOTE | 2020-11-18 01:27 | NUR ---
RECEIVED IN BEDROOM. RESTING IN BED WITH EYES CLOSED. CALM AND COOPERATIVE WITH CARE AND ASSESSMENT. NO SIGNS OF AGGRESSION. NO SIGNS OF SEXUALLY INAPPROPRIATE BEHAVIORS. REDIRECT AND REORIENT NEEDED. RESTING IN BED WITH EYES CLOSED AT THIS TIME. CONTINUE PLAN OF CARE.
--- NOTE | 2020-11-18 15:30 | PN ---
PATIENT:PAO VERDE MEDICAL RECORD: [id number] [facility]ATION:[facility] ADMISSION DATE: 10/29/20 PROGRESS NOTE DATE OF SERVICE: 11/17/2020 SUBJECTIVE: The patient's case was discussed with staff. He has no new complaint. OBJECTIVE: The patient is in good behavioral control. He has poor insight about his situation. He does tolerate his medicines well. ASSESSMENT: Schizophrenia. PLAN: The patient has not been sexually inappropriate. He will be transitioned out of the hospital soon. TRANSINT:[id number] Voice Confirmation ID: [id number] DOCUMENT ID: [id number] BECKY ACKERMAN MD at 1530 CC: [id number] DICTATION DATE: 11/17/20 1619 RUBBING BED OPERATOR: 11/18/20 0056 ADM IN [facility] [address] [place] [address]
[2020-11-18] MEDS ORDERED: FEXOFENADINE H180 MG PO (17:13)
[2020-11-18] MEDS ORDERED: CELEXA20 MG PO (17:13)
[2020-11-18] MEDS ORDERED: DEPAKOTE500 MG PO (17:13)
[2020-11-18] MEDS ORDERED: LIPITOR10 MG PO (17:13)
[2020-11-18] MEDS ORDERED: MUCINEX600 MG PO (17:14)
[2020-11-18] MEDS ORDERED: AMITIZA24 MCG PO (17:14)
[2020-11-18] MEDS ORDERED: PEPCID PO (17:14)
[2020-11-18] MEDS ORDERED: VITAMIN D PO (17:14)
--- NOTE | 2020-11-18 17:40 | NUR ---
RECEIVED IN PATIENT ROOM. RESTING IN BED WITH EYES OPEN. CALM AND COOPERATIVE WITH CARE AND ASSESSMENT. NO SEXUALLY INAPPROPRIATE BEHAVIOR. NO AGGRESSIVE BEHAVIOR. REDIRECT AND REORIENT NEEDED. EATING DINNER AT THIS TIME. CONTINUE PLAN OF CARE.
[2020-11-18 20:00] VITALS: BP 106/56
--- NOTE | 2020-11-18 21:02 | NUR ---
RECEIVED IN BEDROOM. RESTING IN BED WITH EYES CLOSED. RESPONDS TO VOICE. CALM AND COOPERATIVE WITH CARE AND ASSESSMENT. NO SIGNS OF AGGRESSION OR SEXUALLY INAPPROPRIATE BEHAVIOR. REDIRECT AND REORIENT NEEDED. RESTING QUIETLY IN BED AT THIS TIME. CONTINUE PLAN OF CARE.
--- NOTE | 2020-11-19 08:08 | NUR ---
SW SPOKE TO PT'S BROTHER. NO OTHER NEEDS WERE VOICED AT THIS TIME. PT [facility]. THIS WAS THE FAMILY'S FIRST CHOICE.
[2020-11-19 08:32] VITALS: BP 132/81
[2020-11-19 09:43] LABS: SARS-CoV-2 ANTIGEN NEGATIVE- SARS-COV-2 (NEGATIVE)
--- NOTE | 2020-11-19 16:06 | PN ---
PATIENT:PAO VERDE MEDICAL RECORD: [id number] LOCATION:[facility] ADMISSION DATE: 10/29/20 PROGRESS NOTE DATE OF SERVICE: 11/18/2020 SUBJECTIVE: The patient's case was discussed with staff. He has no new complaint. OBJECTIVE: The patient is in good behavioral control. He has no thoughts of harming himself or others and has not been sexually inappropriate. ASSESSMENT: Schizophrenia. PLAN: The patient will be transitioned out of the hospital tomorrow. Long-term prognosis is guarded. TRANSINT:[id number] Voice Confirmation ID: [id number] DOCUMENT ID: [id number] BECKY ACKERMAN MD at 1606 CC: [id number] DICTATION DATE: 11/18/201711 CLOTH WIRE WEAVER: 11/19/20 0028 ADM IN [facility] [address] [place] [address]
--- NOTE | 2020-11-19 16:20 | NUR ---
Nutrition Re-Assessment Diet: Cardiac Mech Soft with [place] thick liquids PO intake: 100% x last 9 meals Last BM: 11/19/20 Wt: 170# (11/16/20); Admit Wt: 171# (10/29/20) Meds noted: lasix No new chem labs Estimated nutrition needs remain unchanged from initial nutrition assessment at this time. Nutrition diagnosis: Swallowing difficulty r/t PMHx AEB need for altered diet and liquid consistency. Patient is progressing towards meeting nutrition goals at this time. Recommendations/Interventions: -Recommend continue current PO diet/or per LOCAL HAZMAT DRIVER recommendations. -Will continue to honor food preferences within diet restrictions. -RD will follow-up within 7 days.
--- NOTE | 2020-11-19 17:00 | NUR ---
PATIENT DISCHARGED TO [facility]. PATIENT TRANSPORTED VIA FACILITY VAN. PERSONAL BELONGINGS SENT WITH PATIENT. DISCHARGE PAPERWORK FAXED TO FACILITY AND HARD COPY SENT WITH PATIENT.
--- NOTE | 2020-11-19 18:22 | NUR ---
RECEIVED UP IN WHEELCHAIR THIS AM.IS ORIENTED AND COMPLIANT WITH STAFF AND MEDS.NO AGGRESSION OR SEXUAL BEHAVIOR OBSERVED.PROPELLS SELF IN WHEELCHAIR.DISCHARGED TO [facility] IN [place] AT 1700 VIA THEIR VAN.HAS ALL PERSONAL ITEMS AND INSTRUCTIONS.
--- NOTE | 2020-11-20 13:09 | DS ---
PATIENT:PAO VERDE :52 MEDICAL RECORD: [id number] DISCHARGE SUMMARY ADMISSION DATE: 10/29/20 DISCHARGE DATE: 11/19/20 IDENTIFYING DATA: The patient is 70 years old and he was admitted to the hospital on a voluntary basis. CHIEF COMPLAINT: Sexually inappropriate behavior. HISTORY OF PRESENT ILLNESS: The patient comes to us from a senior living in [place]. They report he has advanced Parkinson disease and that he has been sexually inappropriate. The specifics of this involve vulgar commentary, public masturbation and groping at women. He denies these behaviors and is clearly impaired cognitively. HOSPITAL COURSE: The patient was admitted to the hospital and evaluated from both a medical, psychological, and social standpoint. The patient had no objective signs of Parkinson disease and in fact was taking not only Sinemet, but Haldol Decanoate. Further examination led to my doubting the diagnosis of Parkinson disease. In talking to the family, it was discovered that he has a longstanding history of schizophrenia. I suspect he was having some Parkinson's like symptoms induced by the antipsychotic medication and was incorrectly diagnosed. The patient has schizophrenia, not Parkinson's related dementia and the cognitive declines can easily be explained by the longstanding chronic mental illness as well. His Parkinson's medications were stopped early in the course of the treatment. He showed no evidence at all even of Parkinson disease. No tremor. No cogwheeling. No shuffling gait. No masked facies. He had no symptoms at all and this was at the same time that I was giving him oral Haldol to treat his delusional thought processes. He showed improvement and was subsequently transitioned back to the senior living. DISCHARGE DIAGNOSES: AXIS I: Schizophrenia, chronic, undifferentiated. AXIS II: None. AXIS III: Benign prostatic hypertrophy, hypertension. AXIS IV: Moderate. AXIS V: Global assessment of functioning is 45. PLAN: The patient should be followed on an outpatient basis by his primary care senior living physician as well as the [facility]. He showed no evidence of sexually inappropriate behavior and is not an acute risk to others. If he becomes delusional that may change and I do have him on a low dose of an antipsychotic, but it is holding him at this time and has held him through the past 20 days of hospitalization here. TRANSINT:[id number] Voice Confirmation ID: [id number] DOCUMENT ID: [id number] DISCHARGE SUMMARY REPORT [id number] PAO VERDE PETER MD at 1309 CC: [id number] DICTATION DATE: 11/19/201801 FERTILIZER MIXER: 11/20/20 0544 DIS IN 11/19/20 [place] [id number] [place] [id number]
== END 2020-11-19 17:00 | DRG 57 ==
LOC: D.PSYCH 13:19
PROVIDERS: ADMIT Psychiatry & Neurology Psychiatry; ATTEND Psychiatry & Neurology Psychiatry
DX: G20 Parkinson's disease (principal); F02.81 Dementia in other diseases classified elsewhere, unspecified severity, with behavioral disturbance; N40.0 Benign prostatic hyperplasia without lower urinary tract symptoms; I10 Essential (primary) hypertension; E78.5 Hyperlipidemia, unspecified; E55.9 Vitamin D deficiency, unspecified; K59.01 Slow transit constipation; F20.9 Schizophrenia, unspecified; R05 Cough; F52.8 Other sexual dysfunction not due to a substance or known physiological condition